=== PATIENT | female | born 1985 | race Caucasian/White ===

== ENCOUNTER → 2017-07-01 | Outpatient (CLI) | payer BC | END | disposition home or self-care (01) | LOC: C.LAB 09:04 | PROVIDERS: ATTEND Obstetrics & Gynecology | DX: N97.9 Female infertility, unspecified (principal) ==

== ENCOUNTER → 2017-10-04 | Outpatient (CLI) | payer BC | END | disposition home or self-care (01) | LOC: C.LAB 07:05 | PROVIDERS: ATTEND Obstetrics & Gynecology Reproductive Endocrinology | DX: N97.9 Female infertility, unspecified (principal) ==

== ENCOUNTER → 2017-11-29 | Outpatient (CLI) | payer BC | END | disposition home or self-care (01) | LOC: C.LABSPEC 15:36 | PROVIDERS: ATTEND Obstetrics & Gynecology | DX: Z34.01 Encounter for supervision of normal first pregnancy, first trimester (principal) ==

== ENCOUNTER → 2017-12-09 | Outpatient (CLI) | payer BC ==
[2017-12-09 14:52] LABS: BASO % 0.1 %; BASO ABS # 0.01 K/uL (0-0.2); EOS % 0.4 %; EOS ABS # 0.04 K/uL (0-0.5); HEMATOCRIT 39.5 % (37-47); HEMOGLOBIN 13.8 g/dL (12.0-16.0); IG# 0.02 K/uL (0.00-0.02); LYMPH % 14.4 %; LYMPH ABS # 1.58 K/uL (1.2-3.4); MEAN CELL VOLUME 88.6 fL (80-100); MEAN CORPUSCULAR HEMOGLOBIN 30.9 pg (25-34); MEAN CORPUSCULAR HGB CONC 34.9 g/dl (32-36); MEAN PLATELET VOLUME 9.1 fL (7.4-10.4); MONO % 4.8 %; MONO ABS # 0.53 K/uL (0.11-0.59); NEUT % 80.1 %; NEUT ABS # 8.79 K/uL (1.4-6.5); PLATELET COUNT 272 K/uL (130-400); RED CELL DISTRIBUTION WIDTH CV 12.7 % (11.5-14.5); RED CELL DISTRIBUTION WIDTH SD 41.1 fL (36.4-46.3); WHITE BLOOD COUNT 10.97 K/uL (4.8-10.8)
== END ==
LOC: C.LAB1850 12:27
PROVIDERS: ATTEND Obstetrics & Gynecology
DX: Z34.01 Encounter for supervision of normal first pregnancy, first trimester (principal)

== ENCOUNTER → 2018-01-30 | Outpatient (CLI) | payer BC | END | disposition home or self-care (01) | LOC: C.LAB1850 15:55 | PROVIDERS: ATTEND Obstetrics & Gynecology | DX: Z34.02 Encounter for supervision of normal first pregnancy, second trimester (principal) ==

== ENCOUNTER 2021-01-22 19:31 | Inpatient (IN) ==
[2021-01-22] MEDS ORDERED: OXYTOCIN 30 UNITS/500 ML BAG IV PRN ×2 (21:18)
[2021-01-22] MEDS ORDERED: SODIUM CHLORIDE 0.9% 250 ML IV PRN (21:22)
--- NOTE | 2021-01-22 21:30 | History & Physical Report ---
Date of Service January 22, 2021 Assessment & Plan (1) Supervision of normal intrauterine in multigravida: Admit to L&D. Labs, IV, EFM/toco, COVID swab per policy. Due to prior h/o hemorrhage, discussed increased risk of hemorrhage with this /delivery. Answered questions, discussed plan for care. Will type & cross 2u PRBC to be available, and will have hemorrhage cart available if needed. History of Present Illness Chief Complaint: labor Primary Care Provider: Guillermina Rinaldi MD 35yo @ 39 01/25, presents for her scheduled miller bulb insertion tonight, having regular ctx every 2 minutes - this has worsened throughout the day today. + movement, no vaginal bleeding. No ROM. History of hemorrhage in prior - cord avulsion with delivery of placenta, requiring manual extraction. Then later had large expression of clots twice and required 2u PRBC transfusion. Allergies Allergy/AdvReac Type Severity Reaction Status Date / Time No Known Drug Allergies Allergy Blister Verified 01/22/21 19:51 Home Medications Medication Instructions Recorded Confirmed Type prenat.vits,geneva,sgc-[id number]-[id number] 1 tab PO DAILY 01/22/21 01/22/21 History [ Vitamin] Patient History Medical History Anemia Cystadenoma Endometrial polyp Endometriosis Infertility Ovarian cyst Varicella Surgical History H/O breast augmentation H/O dilation and curettage H/O inguinal hernia repair H/O laparoscopy History of right oophorectomy [place] teeth extracted Family History Grandmother (Paternal) Breast cancer Mother Depression Endometriosis Hypercholesterolemia Grandfather (Maternal) Diabetes Father Hypertension Grandmother (Maternal) Uterine cancer maternal great grandmother Ovarian cancer Social History Smoking Status: Never smoker Hx Alcohol Use: No Hx Substance Use: No Preferred Language: Georgian Communication Ability: Effective Beliefs That Will Affect Care: None marital status: marital status details: Daniel Hurley (33) [phone] Current Living Situation: Spouse and Family Current Living Situation Comment: lives with spouse, son, dog, cat-spouse changing litter current occupational status: employed 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 No s/s chorio or abruption. Skin: no rashes, warm and dry Psychiatric: A+Ox3, euthymic affect Results & Data ([facility]) Vital Signs (Past 12 Hours) Vital Signs Temp Pulse Resp BP 01/22/21 20:00 18 01/22/21 19:52 36.7 C 20 01/22/21 19:43 77 125/75 01/22/21 19:42 36.7 C Monitoring External Monitor FHT Cat 1 [place] Q 2 Coding Level of Care Code None Diagnoses Supervision of normal intrauterine in multigravida Z34.80
[2021-01-22 22:05] LABS: Hematocrit (blood only) 34.9 % (37-47); Hemoglobin 11.7 g/dL (12.0-16.0); Mean Corpuscular Hgb Conc 33.5 g/dL (32-36); Mean Corpuscular Volume 89.5 fL (80-100); Platelet Count 219 K/uL (130-400); RDW Coefficient of Variation 13.5 % (11.5-14.5); White Blood Count 10.38 K/uL (4.8-10.8)
[2021-01-22] MEDS: LACTATED RINGER'S 1,000 ML IV PRN (22:13)
[2021-01-23] MEDS: LACTATED RINGER'S 1,000 ML IV PRN ×4 (06:13→21:22)
[2021-01-23] MEDS: ACETAMINOPHEN 500 MG TAB PO PRN (08:07)
[2021-01-23] MEDS ORDERED: SODIUM CHLORIDE 0.9% INJ 10 ML VIAL ONE (10:32)
[2021-01-23] MEDS ORDERED: BUPIVACAINE 0.25% 30 ML VIAL ONE (10:32)
[2021-01-23] MEDS ORDERED: ePHEDrine sulfate 50 MG/ML AMP ONE (10:32)
[2021-01-23] MEDS ORDERED: fentaNYL citrate 100 MCG/2 ML VIAL ONE (10:33)
[2021-01-23] MEDS ORDERED: fentaNYL 2MCG/ML ROPIVACAINE 1.25MG/ML 100 ML BAG EPI ONE (10:33)
--- NOTE | 2021-01-23 11:02 | Anesthesiology Consultation ---
Date of Service January 23, 2021 Assessment & Plan (1) Encounter for pre-operative examination: Chart Review Chart Review: Acceptable Risk for Labor Epidural Consults Requested none ASA ASA2 Proposed Anesthesia Anesthesia Type: Labor Epidural Risk / Benefits Reviewed With: PT / POA / Parent / Guardian, Accepts Plan and Informed Consent Obtained History Height/Weight Height: 5 ft 7 in Weight: 106.594 kg Allergies Allergy/AdvReac Type Severity Reaction Status Date / Time No Known Drug Allergies Allergy Blister Verified 01/22/21 19:51 Medications Home Medications Medication Instructions Recorded Confirmed Last Taken prenat.vits,geneva,ftb-moml-fuldi 1 tab PO DAILY 01/22/21 01/22/21 01/22/21 [ Vitamin] Active Medications Generic Name Dose Route Start Last Admin Trade Name Freq PRN Reason Stop Dose Admin Acetaminophen 1,000 mg 01/23/21 08:00 01/23/21 08:07 Acetaminophen 500 Mg Tab PO 02/22/21 07:59 1,000 mg Q6H PRN Administration pain Oxytocin 30 units in 500 mls @ 5 mls/hr 01/22/21 21:18 01/23/21 10:12 Pitocin IV 01/24/21 21:17 0.3 units/hr .Q24H PRN 5 mls/hr Labor Induction/Augmentation Titration Protocol 0.3 UNITS/HR Lactated Ringer's 1,000 mls @ 125 mls/hr 01/22/21 21:18 01/23/21 11:01 Lr IV 01/24/21 21:17 999 mls/hr .Q8H PRN Administration L&D Protocol Protocol Past Medical History Medical History Anemia Cystadenoma Endometrial polyp Endometriosis Infertility Ovarian cyst Varicella Exercise / Class Metabolic Activity II 4-5 Yardwork/Stairs/Walk up hill Past Family History Family History Grandmother (Paternal) Breast cancer Mother Depression Endometriosis Hypercholesterolemia Grandfather (Maternal) Diabetes Father Hypertension Grandmother (Maternal) Uterine cancer maternal great grandmother Ovarian cancer Past Surgical History Surgical History H/O breast augmentation H/O dilation and curettage H/O inguinal hernia repair H/O laparoscopy History of right oophorectomy [place] teeth extracted Past Anesthesia History No Hx of Anesthesia Complications and No Family Hx of Anesthesia Complications History of PONV No Hx of PONV and No Hx of Motion Sickness Social History Smoking Status: Never smoker Hx Alcohol Use: No Hx Substance Use: No substance use type: does not use Physical Exam Vital Signs Last Vital Signs Temp 98.1 F 01/23/21 10:26 Pulse 72 01/23/21 10:55 Resp 18 01/23/21 10:26 BP 114/68 01/23/21 10:26 Pulse Ox 97 01/23/21 10:55 ENMT Mouth: no dentition abnormality Thyromental Distance: > or= 3.5 Finger Breadths Mallampati Class: II Neck normal visual inspection Respiratory normal respiratory effort Auscultation: lungs clear to auscultation bilaterally Cardiovascular Rate/Rhythm: regular rate and regular rhythm Testing Laboratory Results 01/22/21 21:34 Blood Type A Positive 01/22/21 21:34 Antibody Screen NEGATIVE 01/22/21 21:34
[2021-01-23] MEDS ORDERED: ePHEDrine sulfate 50 MG/ML AMP IV PRN (11:21)
[2021-01-23] MEDS ORDERED: NALOXONE HCL 0.4 MG/1 ML VIAL/CARP IV PRN (11:21)
[2021-01-23] MEDS ORDERED: NALOXONE HCL 1 MG in SODIUM CHLORIDE 0.9% 1000ML 1,000 ML IV PRN (11:21)
[2021-01-23] MEDS ORDERED: diphenhydrAMINE 50 MG/ML VIAL IV PRN (11:21)
[2021-01-23] MEDS ORDERED: ONDANSETRON INJ 2 MG/ML 2 ML VIAL IV PRN (11:21)
[2021-01-23] MEDS: fentaNYL 2MCG/ML ROPIVACAINE 1.25MG/ML 100 ML BAG EPI PRN (20:34)
[2021-01-24] MEDS: fentaNYL 2MCG/ML ROPIVACAINE 1.25MG/ML 100 ML BAG EPI PRN (03:04)
[2021-01-24] MEDS ORDERED: NURSING L&D Epidural Breakthrough Pain Update ONE (03:29)
[2021-01-24] MEDS: ACETAMINOPHEN 500 MG TAB PO PRN (04:13)
[2021-01-24] MEDS ORDERED: ERYTHROMYCIN OP OINT 1 GM PKT ONE (04:35)
--- NOTE | 2021-01-24 05:00 | Delivery Summary ---
Vaginal Delivery Summary Date of Service January 24, 2021 Spontaneous vaginal delivery. Patient was induced after 39 weeks initially a [place] in her cervix was suggested however she presented the evening before and early labor and was 2 cm eventually Pitocin was started and she progressed to the point of discomfort which she received an epidural at that stage artificial rupture membranes occurred group B strep negative Covid negative Patient required an IUPC as progress slowed but then quickly sped up and she presented to fully dilated she then pushed over only a few contractions and occiput anterior position fluid was clear no nuchal cord mouth and the nares were suctioned gentle traction the baby no excessive force live vigorous female infant cord clamped and cut cord blood obtained placenta removed with gentle traction IV Pitocin started small second-degree tear repaired with 3-0 Vicryl sponge and instrument counts correct estimated blood loss 150 mL Vaginal Delivery Summary and 2nd Degree LAC [facility] Vaginal Delivery Charge Vaginal Delivery Codes: 72293 global code for the antepartum, delivery, and post- Delivery Type Details: and 2nd Degree LAC Procedure Anesthesia type: Epidural
[2021-01-24] MEDS ORDERED: IBUPROFEN 600 MG TAB PO ONE (05:53)
[2021-01-24] MEDS ORDERED: OXYTOCIN 30 UNITS/500 ML BAG IV PRN (05:54)
[2021-01-24] MEDS ORDERED: HYDROCORTISONE ACETATE 25 MG SUPP PR PRN (05:54)
[2021-01-24] MEDS ORDERED: SUPERCREAM 0.870% 15 GM JAR EXT PRN (05:54)
[2021-01-24] MEDS ORDERED: bisacodyL 10 MG SUPP PR PRN (05:54)
[2021-01-24] MEDS ORDERED: BENZOCAINE 20% AER SPR 82.5 GM CAN EXT PRN (05:54)
[2021-01-24] MEDS ORDERED: ACETAMINOPHEN 325 MG TAB PO PRN (05:54)
[2021-01-24] MEDS ORDERED: oxyCODONE/ACETAMINOPHEN 5mg/325mg TAB PO PRN (05:54)
[2021-01-24] MEDS ORDERED: DIPHTHERIA/TETANUS/PERTUSSIS 0.5 ML SYR/VIAL IM ONE (05:54)
[2021-01-24] MEDS: DOCUSATE SODIUM 100 MG CAP PO SCH ×2 (08:20→20:27)
[2021-01-24] MEDS: PRENATAL VITAMIN 1 TAB PO SCH (08:20)
[2021-01-24] MEDS ORDERED: NON-FORMULARY MEDICATION (Prenat.Vits,Cal,Min-Iron-Folic Tablet) PO SCH (09:00)
[2021-01-24] MEDS: IBUPROFEN 600 MG TAB PO PRN ×3 (11:37→20:27)
--- NOTE | 2021-01-24 13:16 | Anesthesia Procedure Note ---
Date of Service January 24, 2021 Anesthesia Post Epidural Note Vital Signs Vital Signs: Temp Pulse Resp BP Pulse Ox 36.6 C 72 19 114/74 98 01/24/21 11:37 01/24/21 11:37 01/24/21 11:37 01/24/21 11:37 01/24/21 11:37 Pain Intensity Bilateral Abdomen: Pain Intensity: 0 Notes Mental Status: alert / awake / arousable Nausea / Vomiting: adequately controlled Pain: adequately controlled Airway Patency, RR, SpO2: stable & adequate BP & HR: stable & adequate Hydration State: stable & adequate Neuraxial Anesthesia: was administered and sensory block is resolving Anesthetic Complications: no major complications apparent Epidural: Removed without complications and With tip intact
--- NOTE | 2021-01-25 05:07 | Obstetrical Progress Note ---
Date of Service <Jignesh Ray MD - Last Filed: 01/25/21 06:00> January 25, 2021 Assessment & Plan <Jignesh Ray MD - Last Filed: 01/25/21 06:00> (1) (spontaneous vaginal delivery): Lacie is a 35 y/o female who is now PPD #2 following at 39- 5/7 weeks. Reports feeling well overall this morning - Feels well today. Eating well, voiding well, ambulating well. - Pain well controlled with ibuprofen 600mg Q4H PRN. - Routine PPD care -- continue OOB and ambulation as tolerated - Anticipate d/c today pending pediatrics - After discharge will have [address] Serrano Subjective <Jignesh Ray MD - Last Filed: 01/25/21 06:00> Lacie is a 35 y/o female who is now PPD #2 following at 39-5/7 weeks. Reports feeling well overall this morning. Endorses mild abdominal cramping pain well managed on analgesics. Voiding without difficulty. Tolerating meals well and able to ambulate some.Some persistent lochia with some im provement this morning. Breast feeding going well overall. Review of Systems Denies fever, chills, sweats Denies shortness of breath, difficulty breathing, chest pain, palpitations, chest pressure. Denies breast pain. Denies dysuria. Denies headache or changes in vision. Physical Exam <Jignesh Ray MD - Last Filed: 01/25/21 06:00> General: Alert, oriented. No acute distress. Cardiac: Regular rate and rhythm, no murmurs/rubs/gallops. Respiratory: Clear to auscultation bilaterally a/p, no wheezes/rales/rhonchi. No increased work of breathing. Symmetrical chest rise. No respiratory distress. Abdomen: Soft, nontender, nondistended. Bowel sounds present. Uterus: Uterine fundus firm, palpable 1 cm below umbilicus. Lower Extremities: No lower extremity edema or swelling. No deep calf pain. Leonid's negative bilaterally. Results & Data ([facility]) <Jignesh Ray MD - Last Filed: 01/25/21 06:00> Vital Signs (Past 12 Hours) Vital Signs Temp Pulse Resp BP 04/07/21 04:30 36.6 C 65 18 113/74 01/24/21 23:55 36.8 C 69 18 126/82 01/24/21 19:40 36.8 C 80 18 119/75 <Maral Pinto MD - Last Filed: 01/25/21 08:01> Co-Signing Physician Notes Resident Physician Supervision Note: I interviewed and examined the patient. Discussed with Dr. Ray and agree with findings and plan as documented in the note. Any exceptions or clarifications are listed here: [ ] Documented By: Maral Pinto MD, FACOG Resident Activity Tracking <Jignesh Ray MD - Last Filed: 01/25/21 06:00> Resident Involvement: Resident Care Provided Care Provided: Adult Hospital Medicine and OB Delivery
[2021-01-25 06:40] LABS: Hematocrit (blood only) 31.9 % (37-47); Hemoglobin 10.6 g/dL (12.0-16.0); Mean Corpuscular Hgb Conc 33.2 g/dL (32-36); Mean Corpuscular Volume 90.4 fL (80-100); Platelet Count 196 K/uL (130-400); RDW Coefficient of Variation 13.7 % (11.5-14.5); RDW Standard Deviation 44.8 fL (36.4-46.3); Red Blood Count 3.53 M/uL (4.2-5.4); White Blood Count 12.31 K/uL (4.8-10.8)
[2021-01-25] MEDS: IBUPROFEN 600 MG TAB PO PRN (08:01)
[2021-01-25] MEDS: DOCUSATE SODIUM 100 MG CAP PO SCH (08:45)
[2021-01-25] MEDS: PRENATAL VITAMIN 1 TAB PO SCH (08:45)
[2021-01-25] MEDS ORDERED: bisacodyL 5 MG TABEC PO SCH (20:00)
== END 2021-01-25 11:40 | disposition home or self-care (01) | DRG 807 ==
LOC: OPB 19:31 → 4S1 19:32 → 4S2 01-24 07:25